=== PATIENT | female | born 1985 | race Caucasian/White ===

== ENCOUNTER 2018-01-27 14:39 | Emergency (ER) | payer MEDICAID, OTHER ==
[2018-01-27] MEDS: METOCLOPRAMIDE 10 MG INJ IV (16:29)
[2018-01-27] MEDS: DIPHENHYDRAMINE 50 MG INJ IV (16:29)
[2018-01-27 16:45] LABS: ADD MAN DIFF? NO
[2018-01-27 16:47] LABS: BASOPHILS % 0.1 % (0.0-2.0); EOSINOPHILS # 0.1 10^3/ul (0.0-0.5); HEMATOCRIT 37.9 % (37.0-47.0); HEMOGLOBIN 12.4 g/dl (12.0-16.0); LYMPHOCYTES # 2.6 10^3/ul (0.8-2.9); LYMPHOCYTES % 28.4 % (15.0-51.0); MEAN CORPUSCULAR HEMOGLOBIN 28.2 pg (29.0-33.0); MEAN CORPUSCULAR HGB CONC 32.7 g/dl (32.0-37.0); MEAN CORPUSCULAR VOLUME 86.1 fl (82.0-101.0); MEAN PLATELET VOLUME 12.3 fl (7.4-10.4); MONOCYTE # 0.6 10^3/ul (0.3-0.9); MONOCYTES % 6.5 % (0.0-11.0); NEUTROPHIL # 5.7 10^3/ul (1.6-7.5); NEUTROPHILS % 63.8 % (39.0-77.0); PLATELET COUNT 213 10^3/UL (140-415); RED CELL DISTRIBUTION WIDTH 14.6 % (11.5-14.5)
[2018-01-27 16:57] LABS: ADD UMIC YES; UR ASCORBIC ACID NEGATIVE (NEGATIVE); UR BILIRUBIN (Dip) NEGATIVE (NEGATIVE); UR BLOOD (Dip) 3+ mg/dL (NEGATIVE); UR CLARITY CLEAR (CLEAR); UR COLOR YELLOW (YELLOW); UR GLUCOSE (Dip) NEGATIVE (NEGATIVE); UR KETONES (Dip) NEGATIVE (NEGATIVE); UR LEUKOCYTE ESTERASE (Dip) NEGATIVE Leu/ul (NEGATIVE); UR NITRITE (Dip) NEGATIVE (NEGATIVE); UR RBC > 182 /HPF (0-5); UR SPECIFIC GRAVITY (Dip) 1.009 (1.003-1.030); UR SQUAMOUS EPITHELIAL CELL FEW /HPF (FEW); UR TOTAL PROTEIN (Dip) NEGATIVE (NEGATIVE); UR UROBILINOGEN (Dip) NEGATIVE (NEGATIVE); UR WBC 3 /HPF (0-5)
[2018-01-27 17:06] LABS: INR 1.12; PROTIME 14.6 Sec (11.9-14.9); PT RATIO 1.1
[2018-01-27] MEDS: SOD CHLORIDE 0.9% 1,000 ML IV (17:06)
[2018-01-27 17:07] LABS: PARTIAL THROMBOPLASTIN TIME 32.4 Sec (25.0-35.0)
[2018-01-27 17:12] LABS: ALANINE AMINOTRANSFERASE 24 IU/L (13-69); ALBUMIN 4.2 g/dl (3.3-4.9); ALBUMIN/GLOBULIN RATIO 1.27; ALKALINE PHOSPHATASE 62 IU/L (42-121); ANION GAP 16 (8-16); ASPARTATE AMINO TRANSFERASE 19 IU/L (15-46); BILIRUBIN,INDIRECT 0.1 mg/dl (0-1.1); BILIRUBIN,TOTAL 0.1 mg/dl (0.2-1.3); BLOOD UREA NITROGEN 9 mg/dl (7-20); CALCIUM 9.5 mg/dl (8.4-10.2); CARBON DIOXIDE 25 mmol/L (21-31); CHLORIDE 105 mmol/L (97-110); CREATININE 0.55 mg/dl (0.44-1.00); GLUCOSE 96 mg/dl (70-220); POTASSIUM 4.2 mmol/L (3.5-5.1); SODIUM 142 mmol/L (135-144); TOTAL PROTEIN 7.5 g/dl (6.1-8.1)
== END 2018-01-27 18:58 | disposition home or self-care (01) ==
LOC: FTE 14:39
DX: O20.9 Hemorrhage in early pregnancy, unspecified (principal); Z3A.01 Less than 8 weeks gestation of pregnancy
CPT/HCPCS: 36415; 76801; 76817; 80053; 81001; 81025; 84702; 85025; 85610; 85730; 86900; 86901; 96374; 96375; 99285-25

== ENCOUNTER 2018-12-16 09:13 | Inpatient (IN) | payer MEDICAID ==
[2018-12-16] MEDS: SOD CHLORIDE 0.9% 1,000 ML IV ×3 (11:04→21:12)
[2018-12-16] MEDS: ONDANSETRON 4 MG INJ IV ×2 (11:05→16:00)
[2018-12-16 11:11] LABS: ADD UMIC YES; UR ASCORBIC ACID NEGATIVE (NEGATIVE); UR BACTERIA FEW /HPF (NONE SEEN); UR BILIRUBIN (Dip) NEGATIVE (NEGATIVE); UR BLOOD (Dip) 2+ mg/dL (NEGATIVE); UR CLARITY CLOUDY (CLEAR); UR COLOR YELLOW (YELLOW); UR GLUCOSE (Dip) NEGATIVE (NEGATIVE); UR KETONES (Dip) 1+ mg/dL (NEGATIVE); UR LEUKOCYTE ESTERASE (Dip) 3+ Leu/ul (NEGATIVE); UR MUCUS MANY /HPF (NONE SEEN); UR NITRITE (Dip) POSITIVE (NEGATIVE); UR NONSQUAMOUS EPITHELIAL CELL 1 /HPF (NONE SEEN); UR RBC 75 /HPF (0-5); UR SPECIFIC GRAVITY (Dip) 1.014 (1.003-1.030); UR SQUAMOUS EPITHELIAL CELL MODERATE /HPF (FEW); UR TOTAL PROTEIN (Dip) 2+ mg/dl (NEGATIVE); UR UROBILINOGEN (Dip) NEGATIVE (NEGATIVE); UR WBC > 182 /HPF (0-5)
[2018-12-16 11:12] LABS: ADD MAN DIFF? NO
[2018-12-16 11:24] LABS: WHITE BLOOD COUNT 9.8 10^3/ul (4.8-10.8)
[2018-12-16 11:24] LABS: BASOPHILS % 0.1 % (0.0-2.0); HEMOGLOBIN 12.2 g/dl (12.0-16.0); LYMPHOCYTES # 0.8 10^3/ul (0.8-2.9); LYMPHOCYTES % 7.7 % (15.0-51.0); MEAN CORPUSCULAR HEMOGLOBIN 27.4 pg (29.0-33.0); MEAN CORPUSCULAR HGB CONC 32.1 g/dl (32.0-37.0); MEAN CORPUSCULAR VOLUME 85.2 fl (82.0-101.0); MEAN PLATELET VOLUME 11.6 fl (7.4-10.4); MONOCYTE # 0.5 10^3/ul (0.3-0.9); MONOCYTES % 4.9 % (0.0-11.0); NEUTROPHIL # 8.5 10^3/ul (1.6-7.5); NEUTROPHILS % 86.9 % (39.0-77.0); PLATELET COUNT 185 10^3/UL (140-415); RED BLOOD COUNT 4.46 10^6/ul (4.20-5.40); RED CELL DISTRIBUTION WIDTH 14.6 % (11.5-14.5)
[2018-12-16] MEDS: ACETAMINOPHEN 500 MG TAB PO (12:11)
[2018-12-16 12:27] LABS: ALANINE AMINOTRANSFERASE 8 IU/L (13-69); ALBUMIN 3.7 g/dl (3.3-4.9); ALBUMIN/GLOBULIN RATIO 1.02; ALKALINE PHOSPHATASE 86 IU/L (42-121); ANION GAP 11 (5-13); ASPARTATE AMINO TRANSFERASE 16 IU/L (15-46); BILIRUBIN,INDIRECT 0.3 mg/dl (0-1.1); BILIRUBIN,TOTAL 0.3 mg/dl (0.2-1.3); BLOOD UREA NITROGEN 6 mg/dl (7-20); CALCIUM 9.2 mg/dl (8.4-10.2); CARBON DIOXIDE 22 mmol/L (21-31); CHLORIDE 107 mmol/L (97-110); CREATININE 0.51 mg/dl (0.44-1.00); Estimated GFR > 60 mL/min (>60); GLUCOSE 108 mg/dl (70-220); LIPASE 40 U/L (23-300); POTASSIUM 3.9 mmol/L (3.5-5.1); SODIUM 140 mmol/L (135-144); TOTAL PROTEIN 7.3 g/dl (6.1-8.1)
[2018-12-16] MEDS ORDERED: CEFTRIAXONE 1 GM INJ IVPB (15:00)
[2018-12-16] MEDS: CEFTRIAXONE 1 GM/50 ML (PMX) 50 ML IVPB (15:04)
[2018-12-16] MEDS: HYDROmorphONE 0.5 MG/0.5 ML SYG IV ×2 (16:12→18:57)
[2018-12-16] MEDS ORDERED: ONDANSETRON 4 MG INJ IV ×2 (18:30→19:00)
[2018-12-16] MEDS ORDERED: NACL 0.9% 3 ML SYG IV (19:00)
[2018-12-16] MEDS: ACETAMINOPHEN 325 MG TAB PO (21:08)
[2018-12-17] MEDS: ACETAMINOPHEN 325 MG TAB PO ×3 (04:53→18:17)
[2018-12-17 05:43] LABS: HEMOGLOBIN A1C 5.4 % (0-5.9)
[2018-12-17] MEDS: CEFTRIAXONE 1 GM/50 ML (PMX) 50 ML IVPB (08:01)
[2018-12-18] MEDS: CEFTRIAXONE 1 GM/50 ML (PMX) 50 ML IVPB (08:25)
== END 2018-12-18 17:15 | disposition home or self-care (01) | DRG 833 ==
LOC: FTE 09:13 → PP2 18:19
DX: O23.41 Unspecified infection of urinary tract in pregnancy, first trimester (principal); O23.01 Infections of kidney in pregnancy, first trimester; Z3A.14 14 weeks gestation of pregnancy
CPT/HCPCS: 76705; 76805; 80053; 81001; 83036; 83690; 84702; 85025; 87086; 87400

== ENCOUNTER 2019-01-11 09:12 | Emergency (ER) | payer MEDICAID ==
[2019-01-11 09:58] LABS: URINE BLOOD (Dip) POC Negative (NEGATIVE); URINE GLUCOSE (Dip) POC Negative (NEGATIVE); URINE KETONES (Dip) POC Negative (NEGATIVE); URINE LEUKOCYTE EST (Dip) POC Negative (NEGATIVE); URINE NITRITE (Dip) POC Negative (NEGATIVE); URINE TOTAL PROTEIN POC Trace (NEGATIVE)
== END 2019-01-11 11:06 | disposition home or self-care (01) ==
LOC: FTE 09:12
DX: O99.512 Diseases of the respiratory system complicating pregnancy, second trimester (principal); O98.512 Other viral diseases complicating pregnancy, second trimester; J02.0 Streptococcal pharyngitis; R50.9 Fever, unspecified; Z3A.16 16 weeks gestation of pregnancy
CPT/HCPCS: 81003; 87086; 87400; 87880; 99283

== ENCOUNTER 2019-05-20 13:29 | Outpatient (CLI) | payer MEDICAID ==
[2019-05-20 15:49] LABS: RUPTURE FETAL MEMBRANES NEGATIVE (NEGATIVE)
[2019-05-20 16:30] LABS: ADD UMIC YES; UR ASCORBIC ACID NEGATIVE (NEGATIVE); UR BACTERIA FEW /HPF (NONE SEEN); UR BILIRUBIN (Dip) NEGATIVE (NEGATIVE); UR BLOOD (Dip) NEGATIVE (NEGATIVE); UR CLARITY CLOUDY (CLEAR); UR COLOR AMBER (YELLOW); UR GLUCOSE (Dip) NEGATIVE (NEGATIVE); UR KETONES (Dip) NEGATIVE (NEGATIVE); UR LEUKOCYTE ESTERASE (Dip) NEGATIVE Leu/ul (NEGATIVE); UR MUCUS MANY /HPF (NONE SEEN); UR NITRITE (Dip) NEGATIVE (NEGATIVE); UR RBC 3 /HPF (0-5); UR SPECIFIC GRAVITY (Dip) 1.025 (1.003-1.030); UR SQUAMOUS EPITHELIAL CELL MANY /HPF (FEW); UR TOTAL PROTEIN (Dip) 1+ mg/dl (NEGATIVE); UR UROBILINOGEN (Dip) NEGATIVE (NEGATIVE); UR WBC 5 /HPF (0-5)
== END 2019-05-20 18:00 | disposition home or self-care (01) ==
LOC: OBT 13:29 → L-D 13:29 → OBT 18:00
DX: O26.893 Other specified pregnancy related conditions, third trimester (principal); J02.9 Acute pharyngitis, unspecified; Z3A.36 36 weeks gestation of pregnancy
CPT/HCPCS: 76818; 81001; 84112

== ENCOUNTER 2019-05-20 18:06 | Emergency (ER) | payer MEDICAID | END 2019-05-20 18:56 | disposition left against medical advice (07) | LOC: E/R 18:56 | DX: O10.013 Pre-existing essential hypertension complicating pregnancy, third trimester (principal); R05 Cough; Z3A.36 36 weeks gestation of pregnancy | CPT/HCPCS: 99282; Z7502 ==